=== PATIENT | male | born 1990 | race Caucasian/White ===

== ENCOUNTER 2024-01-04 06:45 | Emergency (ER) | payer MEDICAID, OTHER ==
[~2024-01-04] VITALS: Ht 185.4 cm; Wt 90.7 kg
[2024-01-04 07:04] VITALS: BP 114/69; TEMP 97.9
[2024-01-04] MEDS ORDERED: CLIN150C16 PO (08:06)
[2024-01-04 08:18] VITALS: O2SAT 99
== END 2024-01-04 08:18 | disposition home or self-care (01) ==
LOC: ER 06:49
DX: L72.0 Epidermal cyst (principal)